=== PATIENT | male | born 1940 | race Caucasian/White ===

== ENCOUNTER → 2017-03-14 | Outpatient (CLI) | payer MEDICARE | END | disposition home or self-care (01) | LOC: SHCH 07:49 | PROVIDERS: ATTEND Internal Medicine Cardiovascular Disease | DX: I37.1 Nonrheumatic pulmonary valve insufficiency (principal) | CPT/HCPCS: 93306 ==

== ENCOUNTER → 2019-03-20 | Outpatient (CLI) | payer MEDICARE | END | disposition home or self-care (01) | LOC: SHCH 13:20 | PROVIDERS: ATTEND Internal Medicine Cardiovascular Disease | DX: I87.2 Venous insufficiency (chronic) (peripheral) (principal); I48.0 Paroxysmal atrial fibrillation | CPT/HCPCS: 93970 ==

== ENCOUNTER → 2019-03-31 | Outpatient (CLI) | payer MEDICARE | END | disposition home or self-care (01) | LOC: SHCH 14:12 | PROVIDERS: ATTEND Internal Medicine Cardiovascular Disease | DX: I35.8 Other nonrheumatic aortic valve disorders (principal); I87.2 Venous insufficiency (chronic) (peripheral) | CPT/HCPCS: 93306 ==

== ENCOUNTER 2021-01-25 19:29 | Emergency (ER) | payer MEDICARE ==
[~2021-01-25] VITALS: Ht 177.8 cm; Wt 91.6 kg
[~2021-01-25 19:29] MED LIST: PROMETHAZINE HCL 25 MG/ML 1ML AMPULE IM ONE
[2021-01-25] MEDS ORDERED: ONDANSETRON 4MG INJ ONE (20:16)
[2021-01-25] MEDS ORDERED: DiphenhydrAMINE HCL 50 MG/ML VIAL IV ONE (20:30)
[2021-01-25] MEDS ORDERED: 0.9%NACL 1000ML 1,000 ML IV ONE ×3 (20:30→23:00)
[2021-01-25] MEDS ORDERED: METOCLOPRAMIDE 10 MG/2 ML VIAL IVP ONE (20:30)
[2021-01-25 20:45] LABS: BASOPHILS % (AUTO) 0.3 % (0.0-5.0); EOSINOPHILS % (AUTO) 0.3 % (0.0-8.0); HEMATOCRIT 37.3 % (42-54); LYMPHOCYTES % (AUTO) 29.8 % (21.0-51.0); MEAN CORPUSCULAR HEMOGLOBIN 27.5 pg (27.0-33.0); MEAN CORPUSCULAR VOLUME 83.3 fL (79-99); NEUTROPHILS % (AUTO) 61.4 % (40.0-77.0); PLATELET COUNT (AUTO) 217 K/uL (130-400); RED BLOOD CELL COUNT(AUTO) 4.48 MIL/uL (4.50-6.20); RED CELL DISTRIBUTION WIDTH 14.7 % (11.0-15.5); WHITE BLOOD COUNT (AUTO) 6.6 K/uL (4.8-10.8)
[2021-01-25 21:04] LABS: CREATININE 1.1 mg/dL (0.5-1.5); POTASSIUM 3.3 mmol/L (3.5-5.1)
[2021-01-25] MEDS ORDERED: DiphenhydrAMINE HCL 50 MG/ML VIAL ONE (21:05)
[2021-01-25] MEDS ORDERED: METOCLOPRAMIDE 10 MG/2 ML VIAL ONE (21:05)
[2021-01-25 21:11] LABS: ALBUMIN 3.7 g/dL (3.5-5.0); BILIRUBIN,TOTAL 0.8 mg/dL (0.2-1.0); TOTAL PROTEIN, SERUM 7.6 g/dL (6.0-8.3)
[2021-01-25] MEDS ORDERED: ONDANSETRON 4MG INJ IVP ONE ×2 (22:00→23:30)
[2021-01-25] MEDS ORDERED: SCOPOLAMINE HYDROBROMIDE 1 EACH ADH..PATCH TD ONE (23:30)
[2021-01-25 23:42] LABS: APPEARANCE,URINE Clear (CLEAR); BILIRUBIN,URINE Negative (NEGATIVE); COLOR,URINE Yellow (YELLOW); GLUCOSE, URINE (UA) Negative (NEGATIVE); KETONES,URINE >=80 mg/dL (NEGATIVE); LEUKOCYTE ESTERASE ,URINE Negative (NEGATIVE); NITRATE,URINE Negative (NEGATIVE); OCCULT BLOOD,URINE Small (NEGATIVE); PH,URINE 6.5 (5.0-8.0); PROTEIN,URINE Trace mg/dL (NEGATIVE)
[2021-01-25 23:48] LABS: BACTERIA,URINE None Seen /HPF (None Seen); RBC,URINE 0-1 /HPF (0-1); SQUAMOUS EPITHELIAL CELL,UR Rare /HPF (0-2); WBC,URINE None Seen /HPF (0-1)
[2021-01-26] MEDS ORDERED: PHEN12S PR (01:02)
[2021-01-26] MEDS ORDERED: SCOP1PAT11 TD (01:02)
[2021-01-26 01:30] VITALS: BP 126/52
[2021-01-26] MEDS ORDERED: PROMETHAZINE HCL 25 MG/ML 1ML AMPULE IM ONE (02:00)
== END 2021-01-26 02:06 | disposition home or self-care (01) ==
LOC: EDH 19:29
DX: E86.9 Volume depletion, unspecified (principal); R11.2 Nausea with vomiting, unspecified; C61 Malignant neoplasm of prostate; Z79.899 Other long term (current) drug therapy; Z88.8 Allergy status to other drugs, medicaments and biological substances
CPT/HCPCS: 36415; 71045; 80053; 81001; 82550; 83605; 83690; 84484; 85025; 87040 ×2; 93005; 96361; 96372; 96374; 96375; 96376; 99285; J1200; J2405 ×2; J2550; J2765; J7030

== ENCOUNTER 2021-05-24 20:13 | Emergency (ER) | payer MEDICARE ==
[~2021-05-24] VITALS: Ht 180.3 cm; Wt 92.5 kg
[~2021-05-24 20:13] MED LIST changes: +PHEN12S PR; -PROMETHAZINE HCL 25 MG/ML 1ML AMPULE IM ONE; +SCOP1PAT11 TD
[2021-05-24 20:31] LABS: BASOPHILS % (AUTO) 0.2 % (0.0-5.0); EOSINOPHILS % (AUTO) 0.4 % (0.0-8.0); LYMPHOCYTES % (AUTO) 16.7 % (21.0-51.0); MEAN CORPUSCULAR HEMOGLOBIN 31.3 pg (27.0-33.0); MEAN CORPUSCULAR HGB CONC 33.1 g/dL (32.0-36.0); MEAN CORPUSCULAR VOLUME 94.5 fL (79-99); MONOCYTES % (AUTO) 9.2 % (3.0-13.0); NEUTROPHILS % (AUTO) 72.3 % (40.0-77.0); PLATELET COUNT (AUTO) 101 K/uL (130-400); RED BLOOD CELL COUNT(AUTO) 3.07 MIL/uL (4.50-6.20); RED CELL DISTRIBUTION WIDTH 13.7 % (11.0-15.5)
[2021-05-24 20:41] LABS: POTASSIUM 3.1 mmol/L (3.5-5.1)
[2021-05-24 20:46] LABS: ALBUMIN 2.6 g/dL (3.5-5.0); BILIRUBIN,TOTAL 0.7 mg/dL (0.2-1.0)
[2021-05-24 20:56] LABS: B-TYPE NATRIURETIC PEPTIDE 76 pg/mL (0-100)
[2021-05-24 20:58] LABS: TOTAL PROTEIN, SERUM 6.6 g/dL (6.0-8.3)
[2021-05-24 21:09] LABS: INR 1.21 (0.85-1.15)
[2021-05-24 21:10] LABS: PARTIAL THROMBOPLASTIN TIME 32.3 SEC (26.3-35.5)
[2021-05-25 01:17] LABS: APPEARANCE,URINE Clear (CLEAR); BILIRUBIN,URINE Negative (NEGATIVE); COLOR,URINE Yellow (YELLOW); GLUCOSE, URINE (UA) Negative (NEGATIVE); KETONES,URINE Negative (NEGATIVE); LEUKOCYTE ESTERASE ,URINE Negative (NEGATIVE); NITRATE,URINE Negative (NEGATIVE); OCCULT BLOOD,URINE Large (NEGATIVE); PH,URINE 5.5 (5.0-8.0); PROTEIN,URINE POS 1+ mg/dL (NEGATIVE)
[2021-05-25] MEDS ORDERED: LACT10SO5 PO (01:24)
[2021-05-25 01:30] VITALS: BP 143/53
[2021-05-25 01:32] LABS: WBC,URINE 0-1 /HPF (0-1)
[2021-05-25 01:33] LABS: BACTERIA,URINE Rare /HPF (None Seen)
[2021-05-25] MEDS ORDERED: LACTULOSE 20 GM/30 ML UDCUP ONE (01:36)
[2021-05-25] MEDS: LACTULOSE 20 GM/30 ML UDCUP PO ONE (01:37)
== END 2021-05-25 02:31 | disposition home or self-care (01) ==
LOC: EDH 20:13
DX: K59.00 Constipation, unspecified (principal); M54.50 Low back pain, unspecified; M79.652 Pain in left thigh; I10 Essential (primary) hypertension; Z85.46 Personal history of malignant neoplasm of prostate; Z88.8 Allergy status to other drugs, medicaments and biological substances; Z79.899 Other long term (current) drug therapy
CPT/HCPCS: 36415; 73552; 74176; 80053; 81001; 83735; 83880; 84484; 85025; 85610; 85730; 86850; 86900; 86901; 87088; 93971

== ENCOUNTER → 2021-05-27 | Outpatient (CLI) | payer MEDICARE ==
[~2021-05-27] MED LIST changes: +GADOTERATE MEGLUMINE 10 MMOL/20 ML VIAL IV ONE; +LACT10SO5 PO
== END | disposition home or self-care (01) ==
LOC: RAH 10:51
PROVIDERS: ATTEND Internal Medicine Medical Oncology
DX: G31.9 Degenerative disease of nervous system, unspecified (principal); C61 Malignant neoplasm of prostate
CPT/HCPCS: 70553; A9575

== ENCOUNTER → 2021-05-29 | Outpatient (CLI) | payer MEDICARE | END | disposition home or self-care (01) | LOC: RAH 11:02 | PROVIDERS: ATTEND Internal Medicine Medical Oncology | DX: C61 Malignant neoplasm of prostate (principal); M48.061 Spinal stenosis, lumbar region without neurogenic claudication; M51.26 Other intervertebral disc displacement, lumbar region; M25.78 Osteophyte, vertebrae; M47.816 Spondylosis without myelopathy or radiculopathy, lumbar region | CPT/HCPCS: 72158; A9575 ==

== ENCOUNTER → 2021-06-03 | Outpatient (CLI) | payer MEDICARE | END | disposition home or self-care (01) | LOC: RAH 11:31 | PROVIDERS: ATTEND Internal Medicine Medical Oncology | DX: C79.51 Secondary malignant neoplasm of bone (principal); C61 Malignant neoplasm of prostate; M50.21 Other cervical disc displacement, high cervical region; M48.02 Spinal stenosis, cervical region | CPT/HCPCS: 72156; A9575 ==

== ENCOUNTER → 2021-06-04 | Outpatient (CLI) | payer MEDICARE | END | disposition home or self-care (01) | LOC: RAH 08:50 | PROVIDERS: ATTEND Internal Medicine Medical Oncology | DX: C61 Malignant neoplasm of prostate (principal); M47.814 Spondylosis without myelopathy or radiculopathy, thoracic region; M48.04 Spinal stenosis, thoracic region | CPT/HCPCS: 72157; A9575 ==